=== PATIENT | female | born 1990 | race African-American/Black ===

== ENCOUNTER → 2022-07-20 | Outpatient (CLI) | payer OTHER | LOC: M RAD 12:47 | PROVIDERS: ATTEND Physician Assistant | DX: M25.552 Pain in left hip (principal); M25.551 Pain in right hip ==

== ENCOUNTER 2022-08-26 11:27 | Day surgery (SDC) | payer OTHER ==
[~2022-08-26] VITALS: Ht 170.2 cm; Wt 84.8 kg
[~2022-08-26 11:27] MED LIST: OMEP40CA5 PO; PRAZ2CAP PO; SPIR100T3 PO; SUMA50TA2 PO; TIRZ2.5P SC; TOPI25TA10 PO; TRAZ-252 PO; ZOLO100T PO
[2022-08-26] MEDS ORDERED: propofoL 200 MG/20 ML VIAL As Ordered ONE (13:25)
[2022-08-26] MEDS ORDERED: LIDOCAINE 2% 100MG/5ML SDV (FOR ANES.) As Ordered ONE (13:25)
[2022-08-26 14:05] VITALS: BP 116/60
[2022-08-27] MEDS ORDERED: NS 1,000 ML IV ONE (06:00)
== END 2022-08-26 14:14 | disposition home or self-care (01) ==
LOC: M OPP 11:27
PROVIDERS: ATTEND Internal Medicine Gastroenterology
DX: K29.70 Gastritis, unspecified, without bleeding (principal); B96.81 Helicobacter pylori [H. pylori] as the cause of diseases classified elsewhere; R12 Heartburn; Z79.84 Long term (current) use of oral hypoglycemic drugs; Z79.899 Other long term (current) drug therapy; Z99.89 Dependence on other enabling machines and devices; G47.30 Sleep apnea, unspecified; F32.9 Major depressive disorder, single episode, unspecified; F41.9 Anxiety disorder, unspecified; F43.10 Post-traumatic stress disorder, unspecified; G43.909 Migraine, unspecified, not intractable, without status migrainosus

== ENCOUNTER → 2022-09-27 | Outpatient (CLI) | payer OTHER | LOC: M LAB 14:33 | PROVIDERS: ATTEND Internal Medicine Gastroenterology | DX: R10.9 Unspecified abdominal pain (principal); B96.81 Helicobacter pylori [H. pylori] as the cause of diseases classified elsewhere; Z53.8 Procedure and treatment not carried out for other reasons ==

== ENCOUNTER → 2022-10-09 | Outpatient (REF) | payer OTHER | LOC: M LAB REF 11:28 | PROVIDERS: ATTEND Internal Medicine Gastroenterology | DX: B96.81 Helicobacter pylori [H. pylori] as the cause of diseases classified elsewhere (principal) ==

== ENCOUNTER → 2022-10-28 | Outpatient (CLI) | payer OTHER | LOC: M RAD 14:49 | PROVIDERS: ATTEND Otolaryngology | DX: J32.0 Chronic maxillary sinusitis (principal); J34.3 Hypertrophy of nasal turbinates; J34.2 Deviated nasal septum ==